=== PATIENT | female | born 1940 | race Caucasian/White ===

== ENCOUNTER → 2020-02-13 13:14 | Outpatient (CLI) | payer MEDICARE, BC, SELFPAY ==
--- NOTE | ~2020-02-13 | DEXA_ITS ---
Bone Density Report Name: Bonnie Christine Age: 79 Sex: Female Ethnicity: White Date of : 1940 Indication: postmenopausal; screening for osteoporosis; height loss; prior fracture; hysterectomy; Referring Provider: LAUREL, WILMAN Akers Study: Bone densitometry was performed. Exam Date: February 13, 2020 Accession number: [id number] Bone Density: Region BMD T-score Z-score Classification AP Spine (L1, L2, L4) 1.019 -0.1 2.4 Normal Femoral Neck (Left) 0.657 -1.7 0.5 Osteopenia Total Hip (Left) 0.865 -0.6 1.3 Normal Femoral Neck (Right) 0.707 -1.3 0.9 Osteopenia Total Hip (Right) 0.842 -0.8 1.1 Normal Total Hip Mean 0.854 -0.7 1.2 Normal World Health Organization criteria for BMD impression classify patients as: Normal (T-score at or above -1.0), Osteopenia (T-score between -1.0 and -2.5), or Osteoporosis (T-score at or below -2.5). 10-year Fracture Risk(1): Major Osteoporotic Fracture 20% Hip Fracture 4.3% Reported Risk Factors: [place] (), Neck BMD=0.657, BMI=27.3, previous fracture (1) FRAX(R) Version 3.08. Fracture probability calculated for an untreated patient. Fracture probability may be lower if the patient has received treatment. Previous Exams: Region Exam Age BMD T-score BMD Change BMD Change Date g/cm2 vs Baseline vs Previous AP Spine(L1, L2, L4) 02/13/2020 79 1.019 -0.1 0.052* 0.023* 12/24/2016 76 0.996 -0.3 0.029* 0.013 10/24/2014 74 0.984 -0.5 0.016 0.006 09/13/2011 71 0.978 -0.5 0.010 0.010 12/25/2004 64 0.967 -0.6 Total Hip(Left) 02/13/2020 79 0.865 -0.6 -0.132* -0.044* 12/24/2016 76 0.908 -0.3 -0.089* -0.030* 10/24/2014 74 0.938 0.0 -0.059* -0.025 09/13/2011 71 0.963 0.2 -0.034* -0.034* 12/25/2004 64 0.997 0.5 Total Hip(Right) 02/13/2020 79 0.842 -0.8 -0.099* -0.007 12/24/2016 76 0.850 -0.8 -0.091* -0.031* 10/24/2014 74 0.881 -0.5 -0.060* -0.036* 09/13/2011 71 0.917 -0.2 -0.024 -0.024 12/25/2004 64 0.941 0.0 *Denotes significance at 95% confidence level, LSC for AP Spine = 0.022 g/cm2, LSC for Total Hip = 0.027 g/cm2 Clinical Information Provided by Patient: Has had a low trauma fracture Has used the following medications: Calcium, MTV Has the following medical conditions: Hysterectomy
--- NOTE | ~2020-02-13 | MM_ITS ---
EXAMINATION: MM screening carlos BI w ed[facility] HISTORY: Screening mammogram TECHNIQUE: Craniocaudal and mediolateral oblique 3-D tomosynthesis images were obtained and synthetic 2-D images were generated. CAD analysis was submitted and interpreted. COMPARISON: 01/17/2019, 12/28/2017, 12/24/2016 bilateral digital screening mammogram examinations BREAST PARENCHYMAL COMPOSITION: The breasts are heterogeneously dense, which may obscure small masses . FINDINGS: There is stable fibroglandular asymmetry. There are numerous bilateral benign-appearing addis cifications. There is no evidence of suspicious mass, calcification, or architectural distortion to s uggest malignancy in either breast. There has been no suspicious interval change. IMPRESSION: 1. No mammographic evidence of malignancy. 2. Recommend routine screening mammography in one year. BI-RADS Category 2: Benign finding(s). Reviewed, dictated and finalized at location A.
== END ==
PROVIDERS: Visit Provider Family Medicine
DX: Z12.31 Encounter for screening mammogram for malignant neoplasm of breast (principal); Z78.0 Asymptomatic menopausal state; M85.852 Other specified disorders of bone density and structure, left thigh; M85.851 Other specified disorders of bone density and structure, right thigh
CPT/HCPCS: 77063; 77067; 77080

== ENCOUNTER → 2021-05-26 15:46 | Outpatient (CLI) | payer MEDICARE, BC, SELFPAY ==
--- NOTE | ~2021-05-26 | MM_ITS ---
EXAMINATION: MM screening carlos BI w [facility] HISTORY: Screening mammogram TECHNIQUE: Craniocaudal and mediolateral oblique 3-D tomosynthesis images were obtained and synthetic 2-D images were generated. CAD analysis was submitted and interpreted. COMPARISON: 02/13/2020, 01/17/2019, 12/28/2017 BREAST PARENCHYMAL COMPOSITION: The breasts are heterogeneously dense, which may obscure small masses . FINDINGS: Scattered benign-appearing calcifications are present. There is no evidence of suspicious m ass, calcification, or architectural distortion to suggest malignancy in either breast. There has bee n no suspicious interval change. IMPRESSION: 1. No mammographic evidence of malignancy. 2. Recommend routine screening mammography in one year. BI-RADS Category 2: Benign finding(s). Reviewed, dictated and finalized at location A.
== END ==
PROVIDERS: PCP Family Medicine; Visit Provider Family Medicine
DX: Z12.31 Encounter for screening mammogram for malignant neoplasm of breast (principal)
CPT/HCPCS: 77063; 77067

== ENCOUNTER 2021-06-14 11:48 | Emergency (ER) | payer MEDICARE, BC, SELFPAY ==
[2021-06-14 12:16] VITALS: BP 143/56; PULSE 68; RESP 18; TEMP 36.8; O2SAT 100
--- NOTE | 2021-06-14 12:54 | ED.WOUNDLAC ---
HPI - Wound/Laceration General Chief Complaint: Wound/Laceration Stated Complaint: Cut on left Heel Time Seen by Provider: 06/14/21 12:50 Source: patient Mode of arrival: ambulatory Limitations: no limitations History of Present Illness HPI narrative: Bonnie Christine is a 80-year-old female with a PMH of high cholesterol and high blood pressure who comes to [facility] with a infected abrasion to her left lower ankle, Achilles side few days ago when trying to take shower [place] a motel Related Data Home Medications Medication Instructions Recorded Confirmed alendronate 70 mg PO DAILY 06/14/21 06/14/21 amlodipine-benazepril 1 cap PO DAILY 06/14/21 06/14/21 ergocalciferol (vitamin D2) 1,250 mcg PO DAILY 06/14/21 06/14/21 fenofibrate 160 mg PO DAILY 06/14/21 06/14/21 fluticasone propionate 1 mcg INTRANASAL DAILY 06/14/21 06/14/21 simvastatin 40 mg PO DAILY 06/14/21 06/14/21 Allergies Allergy/AdvReac Type Severity Reaction Status Date / Time celecoxib Allergy Unknown Unverified 05/12/14 11:21 Sulfa (Sulfonamide Allergy Unknown RASH Verified 05/12/14 11:21 Antibiotics) thimerosal Allergy Unknown Verified 05/12/14 11:21 Review of Systems Review of Systems: Narrative: CONSTITUTIONAL: Denies fever, chills, sweats. EYES: Denies visual changes, redness, discharge. ENT: Denies rhinorrhea, congestion, sore throat, otalgia. CARDIOVASCULAR: Denies chest pain, palpitations, edema. RESPIRATORY: Denies dyspnea, wheezing, cough GASTROINTESTINAL: Denies abdominal pain, nausea, vomiting, diarrhea. GENITOURINARY: Denies dysuria, hematuria, abnormal discharge SKIN: Denies rash or itching. NEUROLOGIC: Denies numbness, or focal weakness. PSYCHIATRIC: Denies anxiety or depression. Abrasion to left lower ankle PMFSH Past Medical History Medical History High cholesterol Hypertension Family History Family History Other High cholesterol Hypertension Social History Social History (Updated 06/14/21 @ 12:57 by Ayesha Lopez CNP) Smoking status: Never smoker Alcohol intake: current Comments At time of signature, I agree with nursing past medical, surgical, social and family history. There is no relevant family history pertinent to the presenting complaint. Exam Narrative: Exam Narrative: GENERAL: This is a well-nourished, well-developed patient, in mild distress. HEAD: normocephalic, atraumatic. EYES Sclera clear/white. Vision is grossly intact. EARS: External ears normal, . Hearing grossly intact. NOSE: External nose normal without nasal discharge, nares without redness, no rhinorrhea. THROAT: Mucous membranes moist, NECK: Neck supple, non-tender CARDIOVASCULAR: Regular rate and rhythm without murmurs, gallops, or rubs. RESPIRATORY: Clear to auscultation. Breath sounds equal bilaterally. No wheezes, rales, or rhonchi. GASTROINTESTINAL: Abdomen soft, SKIN: warm, intact with left lower ankle on the Achilles side that is red with oozing drainage, mildly warm, no induration NEURO: awake, alert, and oriented to person, place and time. There were no obvious focal neurologic abnormalities. Steady gait EXTREMITIES: Normal range of motion. BACK: Nontender without deformity Course Course Emergency Course: [facility] with an abrasion to her left lateral lower foot Achilles area Start on Keflex; keep area clean and dry, cover when in a shoe Follow-up with primary care physician Vital Signs Vital signs: Vital Signs Temperature 98.2 F 06/14/21 12:16 Pulse Rate 68 06/14/21 12:16 Respiratory Rate 18 06/14/21 12:16 Blood Pressure 143/56 H 06/14/21 12:16 Pulse Oximetry 100 06/14/21 12:16 Temperature 98.2 F 06/14/21 12:16 Pulse Rate 68 06/14/21 12:16 Respiratory Rate 18 06/14/21 12:16 Blood Pressure 143/56 H 06/14/21 12:16 Pulse Oximetry 100 06/14/21 12:16 M
== END 2021-06-14 13:07 | disposition home or self-care (01) ==
PROVIDERS: Emergency Provider Nurse Practitioner; PCP Family Medicine
DX: S90.512A Abrasion, left ankle, initial encounter (principal); X58.XXXA Exposure to other specified factors, initial encounter; E78.00 Pure hypercholesterolemia, unspecified; I10 Essential (primary) hypertension
CPT/HCPCS: 99213; G0463

== ENCOUNTER → 2021-12-02 10:35 | Outpatient (CLI) | payer MEDICARE, BC, SELFPAY ==
--- NOTE | ~2021-12-02 | XR_ITS ---
EXAMINATION: XR knee RT 3V DATE: 12/02/2021 10:55 INDICATION: Anterior right knee pain for one month. TECHNIQUE: 3 views of right knee were obtained. COMPARISON: None. FINDINGS: Bone alignment is normal. No fracture. There is mild tricompartmental osteoarthritis charac terized by tiny marginal osteophytes. No joint space narrowing. There is chondrocalcinosis of the men isci. No knee joint effusion. IMPRESSION: 1. Mild right knee osteoarthritis. Reviewed, dictated and finalized at location B. OR DISABLED CARER
== END ==
PROVIDERS: PCP Family Medicine; Visit Provider Family Medicine
DX: M17.11 Unilateral primary osteoarthritis, right knee (principal); M11.261 Other chondrocalcinosis, right knee
CPT/HCPCS: 73562

== ENCOUNTER → 2022-08-06 10:17 | Outpatient (CLI) | payer MEDICARE, BC, SELFPAY ==
--- NOTE | ~2022-08-06 | DEXA_ITS ---
Bone Density Report Name: LAURE VILLARREAL Age: 81 Sex: Female Ethnicity: White Date of : 1940 Indication: postmenopausal; screening for osteoporosis; height loss; prior fracture; hysterectomy; Referring Provider: LAUREL, WILMAN Akers Study: Bone densitometry was performed. Exam Date: August 06, 2022 Accession number: [id number] Bone Density: Region BMD T-score Z-score Classification AP Spine (L1, L2) 0.944 -0.3 2.2 Normal Femoral Neck (Left) 0.669 -1.6 0.7 Osteopenia Total Hip (Left) 0.855 -0.7 1.3 Normal Femoral Neck (Right) 0.708 -1.3 1.0 Osteopenia Total Hip (Right) 0.860 -0.7 1.4 Normal Total Hip Mean 0.858 -0.7 1.4 Normal World Health Organization criteria for BMD impression classify patients as: Normal (T-score at or above -1.0), Osteopenia (T-score between -1.0 and -2.5), or Osteoporosis (T-score at or below -2.5). 10-year Fracture Risk(1): Major Osteoporotic Fracture 20% Hip Fracture 4.6% Reported Risk Factors: [place] (), Neck BMD=0.669, BMI=25.6, previous fracture (1) FRAX(R) Version 3.08. Fracture probability calculated for an untreated patient. Fracture probability may be lower if the patient has received treatment. Previous Exams: Region Exam Age BMD T-score BMD Change BMD Change Date g/cm2 vs Baseline vs Previous AP Spine(L1, L2) 08/06/2022 81 0.944 -0.3 0.033* 0.026* 02/13/2020 79 0.918 -0.6 0.007 0.009 12/24/2016 76 0.909 -0.6 -0.002 0.027* 10/24/2014 74 0.882 -0.9 -0.029* 0.019 09/13/2011 71 0.864 -1.0 -0.048* -0.048* 12/25/2004 64 0.912 -0.6 Total Hip(Left) 08/06/2022 81 0.855 -0.7 -0.142* -0.009 02/13/2020 79 0.865 -0.6 -0.132* -0.044* 12/24/2016 76 0.908 -0.3 -0.089* -0.030* 10/24/2014 74 0.938 0.0 -0.059* -0.025 09/13/2011 71 0.963 0.2 -0.034* -0.034* 12/25/2004 64 0.997 0.5 Total Hip(Right) 08/06/2022 81 0.860 -0.7 -0.081* 0.018 02/13/2020 79 0.842 -0.8 -0.099* -0.007 12/24/2016 76 0.850 -0.8 -0.091* -0.031* 10/24/2014 74 0.881 -0.5 -0.060* -0.036* 09/13/2011 71 0.917 -0.2 -0.024 -0.024 12/25/2004 64 0.941 0.0 *Denotes significance at 95% confidence level, LSC for AP Spine = 0.022 g/cm2, LSC for Total Hip = 0.027 g/cm2 Clinical Information Provided by Patient: ---
--- NOTE | ~2022-08-06 | MM_ITS ---
EXAMINATION: MM screening carlos BI w edwin HISTORY: Screening mammogram TECHNIQUE: Craniocaudal and mediolateral oblique 3-D tomosynthesis images were obtained and synthetic 2-D images were generated. CAD analysis was submitted and interpreted. COMPARISON: 05/26/2021, 02/13/2020, bilateral screening mammogram examinations BREAST PARENCHYMAL COMPOSITION: The breasts are heterogeneously dense, which may obscure small masses . FINDINGS: Stable fibroglandular asymmetry. Numerous scattered benign calcifications. There is no evid ence of suspicious mass, calcification, or architectural distortion to suggest malignancy in either b reast. There has been no suspicious interval change. IMPRESSION: 1. No mammographic evidence of malignancy. 2. Recommend routine screening mammography in one year. BI-RADS Category 2: Benign finding(s). Reviewed, dictated and finalized at location A.
== END ==
PROVIDERS: PCP Family Medicine; Visit Provider Family Medicine
DX: Z12.31 Encounter for screening mammogram for malignant neoplasm of breast (principal); Z78.0 Asymptomatic menopausal state; M85.89 Other specified disorders of bone density and structure, multiple sites
CPT/HCPCS: 77063; 77067; 77080

== ENCOUNTER → 2022-11-26 10:38 | Outpatient (CLI) | payer MEDICARE, BC, SELFPAY ==
--- NOTE | ~2022-11-26 | XR_ITS ---
XR lumbar spine 2-3V DATE: 11/26/2022 11:12 INDICATION: Mid low back pain, left hip pain TECHNIQUE: AP, lateral, coned lateral lumbosacral views COMPARISON: None FINDINGS: There is approximately 33 degrees rotatory levoscoliosis measured from T12 to L4. There is severe degenerative disc disease throughout the lumbar and lumbosacral spine. No fracture or bone destruction or spondylolisthesis is evident. The sacroiliac joints are intact. Mild osteitis pubis. IMPRESSION: 33 degrees rotatory levoscoliosis Severe degenerative disc disease throughout the lumbar spine Reviewed, dictated and finalized at location B. LIFT MECHANIC
--- NOTE | ~2022-11-26 | XR_ITS ---
XR hip LT 2V w AP pelvis DATE: 11/26/2022 11:11 INDICATION: Lateral left hip pain for months TECHNIQUE: AP pelvis. AP, lateral and crosstable lateral views of left hip COMPARISON: None FINDINGS: There is mild left hip osteoarthritis, with minimal spurring of the left femoral head. Left hip joint space is relatively well preserved. No fracture or dislocation, avascular necrosis or bone destruction of the left hip. Mild osteitis pubis. The sacral iliac joints are intact. No pelvic fracture or bone destruction. Prominent rotatory levoscoliosis and severe degenerative disc disease of the lumbar spine IMPRESSION: Mild left hip osteoarthritis Reviewed, dictated and finalized at location B. F PILOT
== END ==
PROVIDERS: PCP Family Medicine; Visit Provider Family Medicine
DX: M16.12 Unilateral primary osteoarthritis, left hip (principal); M51.36 Other intervertebral disc degeneration, lumbar region
CPT/HCPCS: 72100; 73502

== ENCOUNTER → 2023-09-14 11:02 | Outpatient (CLI) | payer MEDICARE, BC, SELFPAY ==
--- NOTE | ~2023-09-14 | MM_ITS ---
EXAMINATION: MM screening carlos BI w edwin HISTORY: Screening mammogram TECHNIQUE: Craniocaudal and mediolateral oblique 3-D tomosynthesis images were obtained and synthetic 2-D images were generated. CAD analysis was submitted and interpreted. COMPARISON: 07/07/2022, 05/26/2021, 02/13/2020 right lateral screening mammogram examinations BREAST PARENCHYMAL COMPOSITION: The breasts are heterogeneously dense, which may obscure small masses . FINDINGS: Stable fibroglandular asymmetry. Scattered bilateral benign calcifications are again presen t. There is no evidence of suspicious mass, calcification, or architectural distortion to suggest mal ignancy in either breast. There has been no suspicious interval change. IMPRESSION: 1. No mammographic evidence of malignancy. 2. Recommend routine screening mammography in one year. BI-RADS Category 2: Benign finding(s). Reviewed, dictated and finalized at location A.
== END ==
PROVIDERS: PCP Family Medicine; Visit Provider Family Medicine
DX: Z12.31 Encounter for screening mammogram for malignant neoplasm of breast (principal)
CPT/HCPCS: 77063; 77067

== ENCOUNTER → 2023-09-27 08:35 | Outpatient (CLI) | payer MEDICARE, BC, SELFPAY ==
--- NOTE | ~2023-09-27 | MR_ITS ---
MRI of the lumbar spine Clinical History: Degenerative disc disease Technique: Axial T2-weighted images, and sagittal T1-weighted, T2-weighted, and T2 fat-sat images wer e acquired. Findings: Levoscoliosis of the lumbar spine present. No fracture or subluxation evident. There are re active marrow signal changes due to degenerative disc disease. At L1-L2, there is moderate to severe degenerative disc narrowing. There is mild disc bulge with mode rate facet arthropathy. No central canal stenosis. There is moderate to severe bilateral neural dillon inal narrowing. At L2-L3, there is severe degenerative disc narrowing. There is disc bulge with severe right facet ar thropathy and moderate left facet arthropathy. No central canal stenosis. There is severe right neura l foraminal narrowing, and mild left neural foraminal narrowing. At L3-L4, there is severe degenerative disc narrowing. There is disc bulge with moderate bilateral fa cet arthropathy, right worse than left. There is mild central canal stenosis. There is moderate to se ankit left neural foraminal narrowing, and severe right neural foraminal narrowing. At L4-L5, there is moderate degenerative disc narrowing. Diffuse disc bulge and severe facet arthropa thy result in severe central canal stenosis/thecal sac compression. There is severe bilateral neural foraminal narrowing, left worse than right. At L5-S1, there is advanced degenerative disc narrowing. There is mild disc bulge with advanced facet arthropathy. No central canal stenosis. There is severe left neural foraminal narrowing, and moderat e right neural foraminal narrowing. Paravertebral soft tissues are unremarkable. Impression: Severe degenerative spondylosis throughout the lumbar spine, as detailed above. Reviewed, dictated and finalized at location M. ION ENGINEER Impression: Severe degenerative spondylosis throughout the lumbar spine, as detailed above.
== END ==
PROVIDERS: PCP Family Medicine; Visit Provider Family Medicine
DX: M51.36 Other intervertebral disc degeneration, lumbar region (principal); M43.06 Spondylolysis, lumbar region
CPT/HCPCS: 72148

== ENCOUNTER 2024-05-07 17:10 | Emergency (ER) | payer MEDICARE, BC, SELFPAY ==
--- NOTE | ~2024-05-07 | XR_ITS ---
EXAM: XR elbow LT min 3V DATE: 05/07/2024 17:39 HISTORY: fall. Lateral elbow tenderness, . COMPARISON: None available. FINDINGS: Decreased mineralization. No fracture or dislocation. No lytic or blastic lesion. Joint sp aces are maintained. No erosion or periosteal change. Posterior soft tissue swelling and bandage mate rial. IMPRESSION: No acute osseous finding in the left elbow. Reviewed, dictated and finalized at location K.
[2024-05-07 17:23] VITALS: BP 170/77; PULSE 83; RESP 20; TEMP 36.5; O2SAT 100
--- NOTE | 2024-05-07 17:25 | ED.GENADULT ---
HPI - General Adult General Chief complaint: Extremity Injury, Upper Stated complaint: Left Elbow Injury Time Seen by Provider: 05/07/24 17:25 Source: patient, RN notes reviewed and old records reviewed Mode of arrival: ambulatory Limitations: no limitations History of Present Illness HPI narrative: 83-year-old female presents to the [facility] with a skin tear to the elbow. Swelling and small bruising noted. Bleeding is controlled. Neurovascular intact Patient states that she fell. Denies hitting head. No loss of consciousness. Full range of motion of the elbow Denies any back or hip pain. Related Data Home Medications Medication Instructions Recorded Confirmed alendronate 70 mg tablet 70 mg PO DAILY 06/14/21 05/07/24 amlodipine 10 mg-benazepril 20 mg 1 cap PO DAILY 06/14/21 05/07/24 capsule ergocalciferol (vitamin D2) 1,250 1,250 mcg PO DAILY 06/14/21 05/07/24 mcg (50,000 unit) capsule fenofibrate 160 mg tablet 160 mg PO DAILY 06/14/21 05/07/24 fluticasone propionate 50 1 mcg intranasal DAILY 06/14/21 05/07/24 mcg/actuation nasal spray,suspension simvastatin 40 mg tablet 40 mg PO DAILY 06/14/21 05/07/24 Allergies Allergy/AdvReac Type Severity Reaction Status Date / Time celecoxib Allergy Unknown Hives Verified 05/07/24 17:28 Sulfa (Sulfonamide Allergy Unknown RASH Verified 05/07/24 17:28 Antibiotics) thimerosal Allergy Unknown Rash Verified 05/07/24 17:28 Review of Systems Review of Systems: All systems reviewed & are unremarkable except as noted in HPI and below Constitutional: Constitutional: Reports no additional constitutional complaints Eyes: Eyes: Reports no additional eye complaints ENT: Reports system reviewed and no additional complaints, except as documented Cardiovascular: Cardiovascular: Reports no additional cardiovascular complaints, Denies chest pain and Denies dyspnea Respiratory: Respiratory: Reports no additional respiratory complaints, Denies chest congestion, Denies cough and Denies dyspnea Gastrointestinal: Gastrointestinal: Reports no additional gastrointestinal complaints, Denies abdominal pain, Denies nausea and Denies vomiting Musculoskeletal: Musculoskeletal: Reports as per HPI Integumentary/Breasts: Skin/Breast: Reports as per HPI Neurologic: Reports system reviewed and no additional complaints, except as documented Psychiatric: Psychiatric: Reports no additional psychiatric complaints Allergic/Immunologic: Allergic/Immunologic: Reports no additional allergic/immunologic complaints [facility] Past Medical History Medical History High cholesterol Hypertension Family History Family History Other High cholesterol Hypertension Social History Social History Smoking status: Never smoker Alcohol intake: current Comments At the time of my signature, I reviewed and agree with the nursing past medical, surgical, social, and family history. There is no relevant family history pertinent to the patient complaint. Exam Const: General: cooperative, healthy appearing, comfortable, no acute distress, well developed, alert and well nourished Nutritional Appearance: well nourished Orientation/consciousness: patient oriented x3 Limitations: no limitations HENMT: Head: normal to inspection Ears: hearing grossly normal bilaterally and external ears normal Face/Nose/Sinus: Normal external nose present, Normal nares present, Normal nasal mucous membranes and turbinates present, normal facial exam and face symmetric Face and sinus: normal facial exam and face symmetric Eyes: General: appearance normal, both eyes and all related structures Alignment and Position: alignment normal Periorbital: periorbital findings normal Pupils: Equal, round and reactive pupils present EOM: EOMs intact bilaterally Neck
== END 2024-05-07 18:11 | disposition home or self-care (01) ==
PROVIDERS: Emergency Provider Nurse Practitioner; PCP Nurse Practitioner Family
DX: S51.012A Laceration without foreign body of left elbow, initial encounter (principal); W19.XXXA Unspecified fall, initial encounter; E78.00 Pure hypercholesterolemia, unspecified; I10 Essential (primary) hypertension
CPT/HCPCS: 73080; 99213; G0463

== ENCOUNTER 2024-09-18 10:48 | Outpatient (CLI) | payer MEDICARE, BC, SELFPAY ==
--- NOTE | ~2024-09-18 | MM_ITS ---
EXAMINATION: MM screening carlos BI w edwin HISTORY: Screening mammogram TECHNIQUE: Craniocaudal and mediolateral oblique 3-D tomosynthesis images were obtained and synthetic 2-D images were generated. CAD analysis was submitted and interpreted. COMPARISON: 09/14/2023, 07/07/2022, 05/26/2021, 02/13/2020 BREAST PARENCHYMAL COMPOSITION:Dense: The breasts are heterogeneously dense, which may obscure small masses. FINDINGS: No suspicious mass, calcification, or architectural distortion are identified in either candi ast to suggest malignancy. There has been no suspicious interval change. IMPRESSION: No mammographic evidence of malignancy. Recommend routine screening mammography in one year. BI-RADS Category 1: Negative Reviewed, dictated and finalized at location .
== END 2024-09-18 10:49 | disposition home or self-care (01) ==
LOC: MICIMG 10:49
PROVIDERS: PCP Nurse Practitioner Family; Visit Provider Nurse Practitioner Family
DX: Z12.31 Encounter for screening mammogram for malignant neoplasm of breast (principal)
CPT/HCPCS: 77063; 77067

== ENCOUNTER 2024-09-20 13:08 | Outpatient (CLI) | payer MEDICARE, BC, SELFPAY ==
--- NOTE | ~2024-09-20 | DEXA_ITS ---
Bone Density Report Name: LAURE VILLARREAL Age: 84 Sex: Female Ethnicity: White Date of : 1940 Indication: postmenopausal; screening for osteoporosis; height loss; hysterectomy; Referring Provider: LAUREL, WILMAN Akers Study: Bone densitometry was performed. Exam Date: September 20, 2024 Accession number: [id number] Bone Density: Region BMD T-score Z-score Classification AP Spine(L1, L2, L3) 1.007 -0.1 2.6 Normal Femoral Neck (Left) 0.650 -1.8 0.6 Osteopenia Total Hip (Left) 0.870 -0.6 1.6 Normal Femoral Neck (Right) 0.725 -1.1 1.3 Osteopenia Total Hip (Right) 0.885 -0.5 1.7 Normal Femoral Neck Mean 0.687 -1.5 0.9 Osteopenia Total Hip Mean 0.878 -0.5 1.6 Normal World Health Organization criteria for BMD impression classify patients as: Normal (T-score at or above -1.0), Osteopenia (T-score between -1.0 and -2.5), or Osteoporosis (T-score at or below -2.5). 10-year Fracture Risk(1): Major Osteoporotic Fracture 15% Hip Fracture 4.1% Reported Risk Factors: [place] (), Neck BMD=0.650, BMI=24.7 (1) FRAX(R) Version 3.08. Fracture probability calculated for an untreated patient. Fracture probability may be lower if the patient has received treatment. Clinical Information Provided by Patient: Has used the following medications: Vitamin D, Calcium Has the following medical conditions: Hysterectomy Patient maximum height was 66 Menopause Age: 56 No regular weight bearing exercise Drinks caffeinated beverages Number of children 3 Impression: The patient has low bone mass, based on the Left Femoral Neck T-score. Discussion: BONE DENSITY IS LOW AT ONE OR MORE SKELETAL SITES. This patient's lowest T-score is low at one or more skeletal sites. It meets the World Health Organization's (WHO) criteria for ?low bone mass? (T-score between -1.0 and -2.5). The patient's 10-year risk of fracture as calculated by FRAX is less than the threshold where pharmacological therapy is recommended by the National Osteoporosis Foundation (NOF). However, all treatment decisions require clinical judgment and consideration of individual patient factors, including patient preferences, comorbidities, previous drug use, risk factors not captured in the FRAX model (e.g., frailty, falls, vitamin D deficiency, increased bone turnover, interval significant decline in bone density) and possible under or overestimation of fracture risk by FRAX. The patient should follow a healthful lifestyle (good nutrition with adequate calcium and vitamin D, and appropriate weight-bearing exercise). Follow-Up: Consider repeating this study in 2 to 3 years to reassess this patient's status, or sooner if there is some new clinical indication. Reported by: ARNOLDO on 09/20/2024 1:34:00 PM. Reviewed, dictated and finalized at location A.
== END 2024-09-20 13:09 | disposition home or self-care (01) ==
PROVIDERS: PCP Nurse Practitioner Family; Visit Provider Family Medicine
DX: Z78.0 Asymptomatic menopausal state (principal); M85.89 Other specified disorders of bone density and structure, multiple sites
CPT/HCPCS: 77080

== ENCOUNTER 2024-12-27 12:01 | Outpatient (CLI) | payer MEDICARE, BC, SELFPAY ==
--- NOTE | ~2024-12-27 | XR_ITS ---
Right Knee Technique: AP, lateral, and sunrise views were obtained. Clinical History: Pain Findings: No fracture or dislocation is seen. Osseous alignment is anatomic. There is mild degenerati ve change, particularly of the patellofemoral compartment. There is chondrocalcinosis of the menisci. No joint effusion is seen. Impression: Degenerative change, as above. Chondrocalcinosis of the menisci. Reviewed, dictated and finalized at location M. ISION ASSEMBLER BENCH Impression: Degenerative change, as above. Chondrocalcinosis of the menisci.
--- OUTSIDE RECORDS SUMMARY | 2024-12-27 12:08 | XMS_ITS | Referral Summary ---
Author Organization [facility] 2 Address [address] [facility] [place] [address] Care Team Providers Care Sales And Support Center Agent Name Role Phone Bronwyn Ward MD Primary Care Provider + Allergies Active Allergy Reactions Criticality Noted Date Comments Celecoxib Hives Medium 06/23/2018 Sulfa (Sulfonamide Antibiotics) Unknown Medium Thimerosal Unknown Medium Medications ascorbic acid, vitamin C, 500 mg capsule Take by mouth. Acti ve vitamin b complex tablet Take by mouth. Active fenofibrate (TRIGLIDE) 160 mg tablet 8 Active flaxseed oil oil Take by mouth. Activ e fluticasone propionate (FLOVENT HFA) 44 mcg/actuation inhaler Administer into each nostril. Active simvastatin (ZOCOR) 40 mg tablet 8 Active vitamins A,C,E-zinc-robert er (ICAPS) 14,320-226-200 rifh-ss-mcof capsule Take by mouth. 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 Social History Tobacco Use Types Packs/Day Years Used Date Smoking Tobacco: Former Smokeless Tobacco: Never Alcohol Use Standard Drinks/Week Comments No 0 (1 standard drink = 0.6 oz pur e alcohol) Personal Safety Answer Date Recorded Getting School Help Needed Not on file 01/15 Comments Unknown Sex and Gender Information Value Date Recorded Sex Assigned at Not on file Legal Sex Female 12:22 AM CHEMICAL WEIGHER Gender Identity Not on file Sexual Orientation Not on file Last Filed Vital Signs Vital Sign Reading Time Taken Comments Blood Pressure 130/60 01/23/2024 8:28 AM CHEMICAL WEIGHER Pulse 65 01/23/2024 8:28 AM CHEMICAL WEIGHER Temperature 36.5 C (97.7 F) 11/24/2020 8:08 AM CHEMICAL WEIGHER Respiratory Rate 16 11/10/2018 8:24 AM CHEMICAL WEIGHER Oxygen Saturation 98% 01/23/2024 8:28 AM CHEMICAL WEIGHER Inhaled Oxygen Concentration - - Weight 65.8 kg (145 lb) 01/23/2024 8:28 AM CHEMICAL WEIGHER Height 167.6 cm (5' 6 ) 01/23/2024 8:28 AM CHEMICAL WEIGHER Body Mass Index 23.4 01/23/2024 8:28 AM CHEMICAL WEIGHER Plan of Treatment Not on file Insurance MEDICARE MEDICARE [facility] MEDICARE [facility] FEDERAL Care Teams Sales And Support Center Agent Relationship Specialty Start Date End Date Bronwyn Ward MD PCP - General Family Medicine 12/03/19
--- OUTSIDE RECORDS SUMMARY | 2024-12-27 12:08 | XMS_ITS | Encounter Summary ---
Author Organization [facility] Facility Care Team Providers Care Binding Bench Worker Name Role Phone Davey Delgado MD Primary Care Provide r Bronwyn Ward MD Primary Care Provider + Encounter Details Date Type Department Care Team (Latest Contact Info) Description 08/07/2018 Orders Only [facility] CLINCONV ProviderMaine MD [address] [place] [address] Social History Tobacco Use Types Packs/Day Years Used Date Smoking Tobacco: Former Comments Unknown Sex and Gender Information Value Date Recorded Sex Assigned at Not on file Legal Sex Female 12:22 AM SUPERVISOR COREMAKER Gender Identity Not on file Sexual Orientation Not on file documented as of this encounter Plan of Treatment Not on file documented as of this encounter Procedures Procedure Name Priority Date/Time Associated Diagnosis Comments COLONOSCOPY - SCAN 08/07/2018 12 :00 AM CDT documented in this encounter Results * COLONOSCOPY - SCAN (08/07/2018 12:00 AM CDT) Narrative 08/07/2018 12:00 AM CDT Ordered by an unspecified provider. Historical Provider Final Res ult documented in this encounter Visit Diagnoses Not on filedocumented in this encounter Care Teams Binding Bench Worker Relationship Specialty Start Date End Date Davey Delgado MD [address] [place] [address] PCP - General 03/15/17 12/02/19 Bronwyn Ward MD [address] [place] [address] PCP - General Family Medicine 12/03/19 documented as of this encounter
--- OUTSIDE RECORDS SUMMARY | 2024-12-27 12:08 | XMS_ITS | Clinical Summary ---
Author Organization [facility] Address [address] [address] Phone Care Team Providers Care Web Offset Press Feeder Name Role Phone Davey Delgado MD Primary Care Provide r Allergies Active Allergy Reactions Criticality Noted Date Comments Celecoxib Hives 06/23/2018 Sulfa Antibiotics Hives 06/23/2018 Thimerosal (Thiomersal) Other (see Comments) Swelling and watery eyes Medications Amlodipine Besy-Benazepril HCl 10-20 MG Capsule Take 1 Cap by mouth daily. 04/26/2018 Active fenofibrate 160 MG Tablet Take 160 mg by mouth. 04/26/2018 Active simvastatin (ZOCOR) 40 MG Tablet 04/26/2018 Active Fluticasone Propionate (FLONASE NA) by Nasal route. Active B Complex Vitamins (B COMPLEX PO) Take by mouth. Active Ascorbic Acid (VITAMIN C PO) Take by mouth. Active Flaxseed, Linseed, (FLAX SEED OIL PO) Take by mouth. Active Multiple Vitamins-Mineral s (ICAPS AREDS 2 PO) Take by mouth. Active Family History Medical History Relation Name Comments Cancer Father colon Heart Attack Father Stroke Mother Cancer Paternal Aunt breast Relation Name Status Comments Father Mother Paternal Aunt Social History Tobacco Use Types Packs/Day Years Used Date Smoking Tobacco: Never Smokeless Tobacco: Never Alcohol Use Standard Drinks/Week Comments Yes 0 (1 standard drink = 0.6 oz pur e alcohol) rarely Comments Unknown Sex and Gender Information Value Date Recorded Sex Assigned at Not on file Legal Sex Female 12:39 AM CDT Gender Identity Not on file Sexual Orientation Not on file Last Filed Vital Signs Vital Sign Reading Time Taken Comments Blood Pressure 119/81 08/07/2018 6:35 AM CDT Pulse 64 08/07/2018 5:21 AM CDT Temperature 36 C (96.8 F) 08/07/2018 6:35 AM CDT Respiratory Rate 16 08/07/2018 6:35 AM CDT Oxygen Saturation 95% 08/07/2018 6:35 AM CDT Inhaled Oxygen Concentration - - Weight 68.9 kg (152 lb) 08/07/2018 5:21 AM CDT Height 167.6 cm (5' 6 ) 08/07/2018 5:21 AM CDT Body Mass Index 24.53 08/07/2018 5:21 AM CDT Plan of Treatment Health Maintenance Due Date Last Done Comments DEXA Bone Density 1940 Hepatitis C Virus (HCV) Screening 1940 TdaP Immunization 1942 Pneumococcal Immunization (5 0+ years) (1 of 1 - PCV) 1992 Zoster Immunization (1 of 2) 1992 Respiratory Syncytial Virus (RSV) Immunization (Adult) (1 - 1-dose 75+ series) 2017 Influenza Immunization (#1) 2024 SARS-COV-2 Immunization ( - season) 2024 Hepatitis B Immunization Aged Out No longer eligible based on patient's age to complete this topic Meningococcal Immunization (ACWY) Aged Out No longer eligible based on patient's age to complete this topic Rotavirus Immunization Aged Out No lo nger eligible based on patient's age to complete this topic Insurance MEDICARE [facility] Care Teams Web Offset Press Feeder Relationship Specialty Start Date End Date Davey Delgado MD [address] [place] [address] PCP - General Family Medicine 06/20/18
--- OUTSIDE RECORDS SUMMARY | 2024-12-27 12:08 | XMS_ITS | Encounter Summary ---
Author Organization [facility] Facility Care Team Providers Care Criminology Teacher Name Role Phone Davey Delgado MD Primary Care Provide r Bronwyn Ward MD Primary Care Provider + Encounter Details Date Type Department Care Team (Latest Contact Info) Description 06/13/2018 Orders Only [facility] CLINCONV ProviderMaine MD [address] [place] [address] Social History Tobacco Use Types Packs/Day Years Used Date Smoking Tobacco: Former Comments Unknown Sex and Gender Information Value Date Recorded Sex Assigned at Not on file Legal Sex Female 12:22 AM WORKERS COMPENSATION CLAIMS EXAMINER Gender Identity Not on file Sexual Orientation Not on file documented as of this encounter Plan of Treatment Not on file documented as of this encounter Procedures Procedure Name Priority Date/Time Associated Diagnosis Comments SCAN - LABS 07/04/2018 12:00 AM CDT documented in this encounter Results * SCAN - LABS (07/04/2018 12:00 AM CDT) Narrative 07/04/2018 12:00 AM CDT Ordered by an unspecified provider. Historical Provider Final Res ult documented in this encounter Visit Diagnoses Not on filedocumented in this encounter Care Teams Criminology Teacher Relationship Specialty Start Date End Date Davey Delgado MD [address] [place] [address] PCP - General 03/15/17 12/02/19 Bronwyn Ward MD [address] [place] [address] PCP - General Family Medicine 12/03/19 documented as of this encounter
--- OUTSIDE RECORDS SUMMARY | 2024-12-27 12:08 | XMS_ITS | Encounter Summary ---
Author Organization [facility] Facility Care Team Providers Care Parking Lot Supervisor Name Role Phone Davey Delgado MD Primary Care Provide r Bronwyn Ward MD Primary Care Provider + Encounter Details Date Type Department Care Team (Latest Contact Info) Description 11/17/2018 Orders Only [facility]G CLINCONV Provider, MD [place] [address] [place] [address] Social History Tobacco Use Types Packs/Day Years Used Date Smoking Tobacco: Former Smokeless Tobacco: Never Alcohol Use Standard Drinks/Week Comments No 0 (1 standard drink = 0.6 oz pur e alcohol) Comments Unknown Sex and Gender Information Value Date Recorded Sex Assigned at Not on file Legal Sex Female 12:22 AM FIXED ROUTE OPERATOR Gender Identity Not on file Sexual Orientation Not on file documented as of this encounter Plan of Treatment Not on file documented as of this encounter Procedures Procedure Name Priority Date/Time Associated Diagnosis Comments PROCEDURE - RESULT 11/06/2018 12 :00 AM FIXED ROUTE OPERATOR documented in this encounter Results * PROCEDURE - RESULT (11/06/2018 12:00 AM FIXED ROUTE OPERATOR) Narrative 11/06/2018 12:00 AM FIXED ROUTE OPERATOR Ordered by an unspecified provider. us Historical Provider Final Res ult documented in this encounter Visit Diagnoses Not on filedocumented in this encounter Care Teams Parking Lot Supervisor Relationship Specialty Start Date End Date Davey Delgado MD [address] [place] [address] PCP - General 03/15/17 12/02/19 Bronwyn Ward MD [address] [place] [address] PCP - General Family Medicine 12/03/19 documented as of this encounter
--- OUTSIDE RECORDS SUMMARY | 2024-12-27 12:08 | XMS_ITS | Clinical Summary ---
Author Organization [facility] 2 Address [address] [facility] [place] [address] Care Team Providers Care Weaving Loom Operator Name Role Phone Bronwyn Ward MD Primary [...] 8 Active vitamins A,C,E-zinc-robert er (ICAPS) 14,320-226-200 sxzz-cu-uvsh capsule Take by mouth. 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 Surgical History Surgery Date Site/Laterality Comments HYSTERECTOMY CATARACT EXTRACTION Medical History Medical History Date Comments Hypertension Heart murmur Hyperlipidemia Cataracts, bilateral Family History Medical History Relation Name Comments Hypertension Brother Santana Cancer Father Owen Heart attack Father Owen Hypertension Father Owen Stroke Mother Annamaria Vision loss Mother Annamaria Relation Name Status Comments Brother Santana Father Owen Mother Annamaria Social History Tobacco Use Types Packs/Day Years [...] on file Legal Sex Female 12:22 AM PETROLEUM ENGINEER Gender Identity Not on file Sexual Orientation Not on file Obstetrics History Last Filed Vital Signs Vital Sign Reading Time Taken Comments Blood Pressure 130/60 01/23/2024 8:28 AM PETROLEUM ENGINEER Pulse 65 01/23/2024 8:28 AM PETROLEUM ENGINEER Temperature 36.5 C (97.7 F) 11/24/2020 8:08 AM PETROLEUM ENGINEER Respiratory Rate 16 11/10/2018 8:24 AM PETROLEUM ENGINEER Oxygen Saturation 98% 01/23/2024 8:28 AM PETROLEUM ENGINEER Inhaled Oxygen Concentration - - Weight 65.8 kg (145 lb) 01/23/2024 8:28 AM PETROLEUM ENGINEER Height 167.6 cm (5' 6 ) 01/23/2024 8:28 AM PETROLEUM ENGINEER Body Mass Index 23.4 01/23/2024 8:28 AM PETROLEUM ENGINEER Plan of Treatment Health Maintenance Due Date Last Done Comments Depression Screening 1942 Fall Risk Assessment 1942 Osteoporosis Screening-Bone Density Scan 1942 DTaP/Tdap/Td Vaccine (1 - Tdap) 1953 Hepatitis B Screening 1960 Well Visit 65+ 2007 Zoster Vaccine (2 of 3) 11/25/2015 09/30/2015, 04/03 Pneumococcal vaccine 65+ (2 of 2 - PPSV23 or PCV20) 03/30/2018 03/30/2017, 10/08/2008 Influenza Vaccine (#1) 2024 9, 08/29/2018, 09/26/2017 Insurance MEDICARE MEDICARE [facility] MEDICARE [facility] FEDERAL Care Teams Weaving Loom Operator Relationship Specialty Start Date End Date Bronwyn Ward MD PCP - General Family Medicine 12/03/19
== END 2024-12-27 12:02 | disposition home or self-care (01) ==
PROVIDERS: PCP Nurse Practitioner Family; Visit Provider Nurse Practitioner Family
DX: M25.561 Pain in right knee (principal)
CPT/HCPCS: 73562

== ENCOUNTER 2025-09-19 14:10 | Outpatient (CLI) | payer MEDICARE, BC, SELFPAY ==
--- NOTE | ~2025-09-19 | MM_ITS ---
EXAMINATION: MM screening carlos BI w edwin HISTORY: Screening TECHNIQUE: Craniocaudal and mediolateral oblique 3-D tomosynthesis images were obtained and synthetic 2-D images were generated. CAD analysis was submitted and interpreted. COMPARISON: Comparison to multiple prior studies sequentially, with oldest reviewed study dated Comparison to multiple prior studies sequentially, with oldest reviewed study dated 01/17/2019. . BREAST PARENCHYMAL COMPOSITION: The breasts are heterogeneously dense, which may obscure small masses. FINDINGS: There is no evidence of suspicious mass, calcification, or architectural distortion to suggest malignancy in either breast. There has been no suspicious interval change. IMPRESSION: 1. No mammographic evidence of malignancy. 2. Recommend routine screening mammography in one year. BI-RADS Category 1: Negative Reviewed, dictated and finalized at location B.
--- OUTSIDE RECORDS SUMMARY | 2025-09-19 14:46 | XMS_ITS | Encounter Summary ---
Author Organization [facility] Facility Care Team Providers Care Welder Plastic Name Role Phone Davey Delgado MD Primary Care Provide r Bronwyn Ward MD Primary Care Provider + Carol Valenzuela NP Primary Care Provider [phone] Encounter Details Date Type Department Care Team (Latest Contact Info) Description 06/13/2018 Orders Only [facility]G CLINCONV Provider, MD [place] [address] [place] [address] Social History Tobacco Use Types Packs/Day Years Used Date Smoking Tobacco: Former Comments Unknown Sex and Gender Information Value Date Recorded Sex Assigned at Not on file Legal Sex Female 12:22 AM BEHAVIORAL CONSULTANT Gender Identity Not on file Sexual Orientation [...] AM CDT Ordered by an unspecified provider. us Historical Provider Final Res ult documented in this encounter Visit Diagnoses Not on filedocumented in this encounter Care Teams Welder Plastic Relationship Specialty Start Date End Date Davey Delgado MD [address] [place] [address] PCP - General 03/15/17 12/02/19 Bronwyn Ward MD [address] [place] [address] PCP - General Family Medicine 12/03/19 01/27/25 Carol Valenzuela NP [address] [place] [address] [place] [address] PCP - General Family Medicine 01/28/25 documented as of this encounter
--- OUTSIDE RECORDS SUMMARY | 2025-09-19 14:46 | XMS_ITS | Clinical Summary ---
Author Organization [facility] Address [address] [address] Phone Care Team Providers Care Survey Technician Name Role Phone Davey Delgado MD Primary [...] 5:21 AM CDT Height 167.6 cm (5' 6) 08/07/2018 5:21 AM CDT Body Mass Index 24.53 08/07/2018 5:21 AM CDT Plan of Treatment Health Maintenance Due Date Last Done Comments Hepatitis C Virus (HCV) Screening 1942 TdaP Immunization 1942 Pneumococcal Immunization (5 0+ years) (1 of 1 - PCV) 1992 Zoster Immunization (1 of 2) 1992 Respiratory Syncytial Virus (RSV) Immunization (Adult) (1 - 1-dose 75+ series) 2017 Influenza Immunization (#1) 2025 SARS-COV-2 Immunization ( - season) 2025 Hepatitis B Immunization Aged Out No longer eligible based on patient's age to complete this topic Human Papillomavirus (HPV) Immunization Aged Out No longer eligible b ased on patient's age to complete this topic Meningococcal Immunization (ACWY) Aged Out No longer eligible based on patient's age to complete this topic Rotavirus Immunization Aged Out No lo nger eligible based on patient's age to complete this topic Insurance MEDICARE [facility] Care Teams Survey Technician Relationship Specialty Start Date End Date Davey Delgado MD [address] [place], [place] [phone] PCP - General Family Medicine 06/20/18
--- OUTSIDE RECORDS SUMMARY | 2025-09-19 14:46 | XMS_ITS | Clinical Summary ---
Author Organization [facility] [address] [facility] [place] [address] Care Team Providers Care Food Selector Name Role Phone Carol Valenzuela NP Primary Care Provider Allergies Active Allergy Reactions Criticality Noted Date [...] 8 Active vitamins A,C,E-zinc-robert er (ICAPS) 14,320-226-200 bajo-ui-rxgq capsule Take by mouth. Activ e alendronate (FOSAMAX) 70 mg tablet 2 Active amLODIPine-alissa zepriL (LOTREL) 10-40 mg per capsule Take 1 capsule by mouth daily 4 Active omega-3 fatty acids-fish oil 300-1,000 mg capsule Take 2 capsules (2 g total) by mouth daily Active Active Problems Problem Noted Date Diagnosed [...] loss Mother Annamaria Relation Name Status Comments Brothkennedy Dillon Father Owen Mother Annamaria Social History Tobacco Use Types Packs/Day Years Used Date Smoking Tobacco: Former Smokeless Tobacco: Never Alcohol Use Standard Drinks/Week Comments No 0 (1 standard drink = 0.6 oz pur e alcohol) Comments Unknown Sex and Gender Information Value Date Recorded Sex Assigned at Not on file Legal Sex Female 12:22 AM INTERNET PROGRAMMER Gender Identity Not on file Sexual Orientation Not on file Obstetrics History Last Filed Vital Signs Vital Sign Reading Time Taken Comments Blood Pressure 134/72 01/28/2025 8:21 AM CDT Pulse 67 01/28/2025 8:21 AM CDT Temperature 36.5 C (97.7 F) 11/24/2020 8:08 AM INTERNET PROGRAMMER Respiratory Rate 16 11/10/2018 8:24 AM INTERNET PROGRAMMER Oxygen Saturation 98% 01/28/2025 8:21 AM CDT Inhaled Oxygen Concentration - - Weight 63.1 kg (139 lb 3.2 oz) 01/28/2025 8:21 A M CDT Height 167.6 cm (5' 6) 01/28/2025 8:21 AM CDT Body Mass Index 22.47 01/28/2025 8:21 AM CDT Plan of Treatment Health Maintenance Due Date Last Done Comments Depression Screening 1942 Fall Risk Assessment 1942 Osteoporosis Screening-Bone Density Scan 1942 DTaP/Tdap/Td Vaccine (1 - Tdap) 1953 Hepatitis B Screening 1960 Well Visit 65+ 2007 Zoster Vaccine (2 of 3) 11/25/2015 09/30/2015, 04/03 Pneumococcal vaccine 65+ (2 of 2 - PCV20 or PCV21) 03/30/2018 03/30/2017, 10/08/2008 Influenza Vaccine (#1) 2025 9, 08/29/2018, 09/26/2017 Insurance MEDICARE MEDICARE [facility] MEDICARE [facility] FEDERAL Care Teams Food Selector Relationship Specialty Start Date End Date Carol Valenzuela NP [address] [place] [address] PCP - General Family Medicine 01/28/25
--- OUTSIDE RECORDS SUMMARY | 2025-09-19 14:46 | XMS_ITS | Encounter Summary ---
Author Organization [facility] Facility Care Team Providers Care Watch Repair Person Name Role Phone Davey Delgado MD Primary Care Provide r Bronwyn Ward MD Primary Care Provider + Carol Valenzuela NP Primary Care Provider [phone] Encounter Details Date Type Department Care Team (Latest Contact Info) Description 08/07/2018 Orders Only MMG CLINCONV ProviderMaine MD [address] [place] [address] Social History Tobacco Use Types Packs/Day Years Used Date Smoking Tobacco: Former Comments Unknown Sex and Gender Information Value Date Recorded Sex Assigned at Not on file Legal Sex Female 12:22 AM CONTACT PRINTER DRY FILM Gender Identity Not on file Sexual Orientation [...] on filedocumented in this encounter Care Teams Watch Repair Person Relationship Specialty Start Date End Date Davey Delgado MD [address] [place] [address] PCP - General 03/15/17 12/02/19 Bronwyn Ward MD [address] [place] [address] PCP - General Family Medicine 12/03/19 01/27/25 Carol Valenzuela NP [address] [place] [address] [place] [address] PCP - General Family Medicine 01/28/25 documented as of this encounter
--- OUTSIDE RECORDS SUMMARY | 2025-09-19 14:46 | XMS_ITS | Encounter Summary ---
Author Organization [facility] Facility Care Team Providers Care Brim Edge Trimmer Name Role Phone Davey Delgado MD Primary Care Provide r Bronwyn Ward MD Primary Care Provider + Carol Valenzuela NP Primary Care Provider [phone] Encounter Details Date Type Department Care Team (Latest Contact Info) Description 11/17/2018 Orders Only MMG CLINCONV Provider, MD Manie [address] [place] [address] Social History Tobacco Use Types Packs/Day Years Used Date Smoking Tobacco: Former Smokeless Tobacco: Never Alcohol Use Standard Drinks/Week Comments No 0 (1 standard drink = 0.6 oz pur e alcohol) Comments Unknown Sex and Gender Information Value Date Recorded Sex Assigned at Not on file Legal Sex Female 12:22 AM TRUCK DRIVER'S OFFSIDER Gender Identity Not on file Sexual Orientation Not on file documented as of this encounter Plan of Treatment Not on file documented as of this encounter Procedures Procedure Name Priority Date/Time Associated Diagnosis Comments PROCEDURE - RESULT 11/06/2018 12 :00 AM TRUCK DRIVER'S OFFSIDER documented in this encounter Results * PROCEDURE - RESULT (11/06/2018 12:00 AM TRUCK DRIVER'S OFFSIDER) Narrative 11/06/2018 12:00 AM TRUCK DRIVER'S OFFSIDER Ordered by an unspecified provider. Historical Provider Final Res ult documented in this encounter Visit Diagnoses Not on filedocumented in this encounter Care Teams Brim Edge Trimmer Relationship Specialty Start Date End Date Davey Delgado MD [address] [place] [address] PCP - General 03/15/17 12/02/19 Bronwyn Ward MD [address] [place] [address] PCP - General Family Medicine 12/03/19 01/27/25 Carol Valenzuela NP [address] [place] [address] [place] [address] PCP - General Family Medicine 01/28/25 documented as of this encounter
== END 2025-09-19 14:11 | disposition home or self-care (01) ==
LOC: CHSIMG 14:12
PROVIDERS: PCP Nurse Practitioner Family; Visit Provider Nurse Practitioner Family
DX: Z12.31 Encounter for screening mammogram for malignant neoplasm of breast (principal)
CPT/HCPCS: 77063; 77067